=== PATIENT | female | born 1935 | race Caucasian/White ===

== ENCOUNTER 2020-03-19 14:13 | Emergency (ER) | payer MEDICARE ==
--- NOTE | 2020-03-19 14:42 | ER Document Report ---
ED Medical Screen (RME) - General Stated Complaint: POSSIBLE HIGH BLOOD PRESSURE Time Seen by Provider: 03/19/20 14:29 Mode of Arrival: Wheelchair Information source: Patient Notes: 84-year-old female patient presenting to the emergency department with complaints of generalized malaise and severe headache. Her daughter reports that she just moved here from another town, she was recently admitted last week for hyponatremia. Patient is usually very active but she is barely getting out of bed and is complaining of a severe headache. Today they took Tylenol and there was no relief of the headache. She had an elevated blood pressure at home of 188/85 according to her daughter. She is on ramipril, Plavix, Lipitor and mirtazapine. Patient is alert, oriented, appears to not feel well. Lung sounds clear and eq ual bilaterally. I have greeted and performed a rapid initial assessment of this patient. A comprehensive ED assessment and evaluation of the patient, analysis of test results and completion of the medical decision making process will be conducted by additional ED providers. I have specifically instructed the patient or family members with the patient to immediately return to any nursing staff should anything change in the patient's condition or with their chief complaint. Physical Exam - Vital signs Vitals: Temp Pulse Resp BP Pulse Ox 98.6 F 75 16 166/72 H 100 03/19/20 14:15 03/19/20 14:15 03/19/20 14:15 03/19/20 14:15 03/19/20 14:15 Course - Vital Signs Vital signs: Temp Pulse Resp BP Pulse Ox 98.6 F 75 16 166/72 H 100 03/19/20 14:15 03/19/20 14:15 03/19/20 14:15 03/19/20 14:15 03/19/20 14:15
[2020-03-19 15:08] LABS: ABSOLUTE EOSINOPHILS # (AUTO) 0.1 10^3/uL (0.0-0.6); ABSOLUTE LYMPHOCYTES (AUTO) 0.9 10^3/uL (0.5-4.7); ABSOLUTE MONOCYTES (AUTO) 0.3 10^3/uL (0.1-1.4); ABSOLUTE NEUT (AUTO) 2.5 10^3/uL (1.7-8.2); BASOPHILS % (AUTO) 0.7 % (0-2); EOSINOPHILS % (AUTO) 1.8 % (0-6); HEMATOCRIT 37.1 % (36.0-47.0); MEAN CORPUSCULAR HEMOGLOBIN 31.8 pg (27.0-33.4); MEAN CORPUSCULAR VOLUME 91 fl (80-97); MONOCYTES % (AUTO) 7.8 % (3-13); PLATELET COUNT 182 10^3/uL (150-450); RED BLOOD COUNT 4.09 10^6/uL (3.72-5.28); RED CELL DISTRIBUTION WIDTH 12.9 % (11.5-14.0); SEGMENTED NEUTROPHILS % (AUTO) 66.7 % (42-78); TOTAL CELLS COUNTED % (AUTO) 100 %; WHITE BLOOD COUNT 3.7 10^3/uL (4.0-10.5)
--- NOTE | 2020-03-19 15:24 | RADIOLOGY REPORT (SQ) ---
EXAM DESCRIPTION: CHEST 2 VIEWS IMAGES COMPLETED DATE/TIME: 03/19/2020 3:09 pm REASON FOR STUDY: malaise COMPARISON: None. NUMBER OF VIEWS: Two view. TECHNIQUE: Frontal and lateral radiographic views of the chest acquired. LIMITATIONS: None. FINDINGS: LUNGS AND PLEURA: No opacities, masses or pneumothorax. No pleural effusion. Attenuated bl ood vessels and flattened frederick-diaphragms. MEDIASTINUM AND HILAR STRUCTURES: No masses. No contour abnormalities. HEART AND VASCULAR STRUCTURES: Heart normal in size and contour. No evidence for failure. BONES: No acute findings. HARDWARE: None in the chest. OTHER: No other significant finding. IMPRESSION: COPD. NO ACUTE RADIOGRAPHIC FINDING IN THE CHEST. TECHNICAL DOCUMENTATION: JOB ID: [id number] 2010 [employer]- All Rights Reserved Reading location - IP/workstation name: [email or web address]
[2020-03-19 15:28] LABS: ALKALINE PHOSPHATASE 73 U/L (38-126); ANION GAP 6 (5-19); ASPARTATE AMINO TRANSFERASE 34 U/L (14-36); BILIRUBIN,TOTAL 0.5 mg/dL (0.2-1.3); BLOOD UREA NITROGEN 14 mg/dL (7-20); CALCIUM 9.6 mg/dL (8.4-10.2); CARBON DIOXIDE 29 mmol/L (22-30); CHLORIDE 94 mmol/L (98-107); GLUCOSE 97 mg/dL (75-110); POTASSIUM 4.6 mmol/L (3.6-5.0); TOTAL PROTEIN 6.7 g/dL (6.3-8.2)
--- NOTE | 2020-03-19 15:31 | RADIOLOGY REPORT (SQ) ---
EXAM DESCRIPTION: CT HEAD WITHOUT IMAGES COMPLETED DATE/TIME: 03/19/2020 3:22 pm REASON FOR STUDY: headache COMPARISON: None. TECHNIQUE: Axial images acquired through the brain without intravenous contrast. Images reviewed wi th bone, brain and subdural windows. Additional sagittal and coronal reconstructions were generated. Images stored on PACS. All CT scanners at this facility use dose modulation, iterative reconstruction, and/or weight based d osing when appropriate to reduce radiation dose to as low as reasonably achievable (ALARA). [facility]: Dose Right [facility]: CareDose [facility]: Dose Right [facility]: Teradose 4D [facility]: [place] RADIATION DOSE: CT Rad equipment meets quality standard of care and radiation dose reduction techniq ues were employed. CTDIvol: 53.2 mGy. DLP: 964 mGy-cm. mGy. LIMITATIONS: None. FINDINGS: VENTRICLES: Normal size and contour. CEREBRUM: No masses. No hemorrhage. No midline shift. No evidence for acute infarction. Normal gra y/white matter differentiation. No areas of low density in the white matter. CEREBELLUM: No masses. No hemorrhage. No alteration of density. No evidence for acute infarction. EXTRAAXIAL SPACES: No fluid collections. No masses. ORBITS AND GLOBE: No intra- or extraconal masses. Normal contour of globe without masses. CALVARIUM: No fracture. PARANASAL SINUSES: No fluid or mucosal thickening. SOFT TISSUES: No mass or hematoma. OTHER: No other significant finding. IMPRESSION: NORMAL BRAIN CT WITHOUT CONTRAST. EVIDENCE OF ACUTE STROKE: NO. COMMENT: Quality ID # [id number]: Final reports with documentation of one or more dose reduction techniques (e.g., Automated exposure control, adjustment of the mA and/or kV according to patient size, use of iterative reconstruction technique) TECHNICAL DOCUMENTATION: JOB ID: [id number] 2010 [employer]- All Rights Reserved Reading location - IP/workstation name: [email or web address]
[2020-03-19] MEDS ORDERED: NORMAL SALINE 500 ML IV ONE (17:58)
--- NOTE | 2020-03-19 17:59 | ER Document Report ---
ED General - General Chief Complaint: Headache Stated Complaint: POSSIBLE HIGH BLOOD PRESSURE Time Seen by Provider: 03/19/20 14:29 Mode of Arrival: Wheelchair Information source: Patient Notes: 84-year-old woman is brought to the emergency department with a complaint of not feeling well. She apparently has been recently started on lisinopril 2.5 mg daily for elevated blood pressure. She was also noted to have a low sodium of 127 her primary care doctor in [facility]. She has come to [place] to stay with her daughter and will be seeing him to follow-up with primary care here. They are concerned that her pressure is still running high in the 150-160 systolic range. She denies dizziness or syncope. - Related Data Allergies/Adverse Reactions: Penicillins Allergy (Verified 03/19/20 17:28) Past Medical History - General Information source: Patient - Social History Smoking Status: Never Smoker Frequency of alcohol use: None Drug Abuse: None Family History: Reviewed & Not Pertinent Review of Systems - Review of Systems Notes: Constitutional: + Anxiety . HENT: Negative for sore throat. Eyes: Negative for visual changes. Cardiovascular: Negative for chest pain. Respiratory: Negative for shortness of breath. Gastrointestinal: Negative for abdominal pain, vomiting or diarrhea. Genitourinary: Negative for dysuria. Musculoskeletal: Negative for back pain. Skin: Negative for rash. Neurological: + headaches, +weakness 10 point ROS negative except as marked above and in HPI. Physical Exam - Vital signs Vitals: Temp Pulse Resp BP Pulse Ox 98.6 F 75 16 166/72 H 100 03/19/20 14:15 03/19/20 14:15 03/19/20 14:15 03/19/20 14:15 03/19/20 14:15 - Notes Notes: PHYSICAL EXAMINATION: Physical Exam: General: Thin frail 84-year-old woman no acute distress HEENT: NC/AT, pupils equal round and reactive to light, MM moist,nares clear, o ropharynx clear, airway patent Neck: supple, no adenopathy, no masses. Good range of motion Lungs: clear, no wheezing, no rales no rhonchi CVS: Regular rate and rhythm no murmur gallop or rub Abdomen: Soft, active, nontender, no masses, no hepatosplenomegaly Ext: No edema, clubbing or cyanosis. Neuro: Alert and responsive, moving all 4 extremities on command, cranial nerves intact, no focal findings Skin: Intact no open lesions, no rash Course - Re-evaluation Re-evalutation: 03/19/20 19:17 Patient was noted to have a sodium of 128.7, urine sodium of 92, I discussed this finding with the patient and her daughter and stated that she could liberalize her sodium. Increase lisinopril to 5 mg daily and to monitor the blood pressure closely at home. They are encouraged to follow-up with her primary care doctor early next week for a recheck of the sodium level. Patient and daughter are in agreement with this plan. - Vital Signs Vital signs: Temp Pulse Resp BP Pulse Ox 98.6 F 75 17 169/70 H 100 03/19/20 14:15 03/19/20 14:15 03/19/20 19:29 03/19/20 19:29 03/19/20 19:29 - Laboratory Result Diagrams: 03/19/20 14:57 03/19/20 14:57 Laboratory results interpreted by me: 03/19/20 03/19/20 03/19/20 14:57 14:57 18:00 WBC 3.7 L Sodium 128.8 L Chloride 94 L Urine Ketones TRACE H Urine Blood SMALL H Urine Sodium 03/19/20 18:00 WBC Sodium Chloride Urine Ketones Urine Blood Urine Sodium 92 H 03/19/20 19:23 I have reviewed laboratory data and used this information for the treatment decisions regarding the patient. - Diagnostic Test Radiology reviewed: Pending, Image reviewed, Reports reviewed Radiology results interpreted by me: 03/19/20 19:23 Chest x-ray: COPD, no acute cardiopulmonary findings. CT head noncontrast: No acute intracerebral findings, no CVA. - EKG Interpretation by Me EKG shows normal: Sinus rhythm, [place] - Normal, Intervals - Normal, QRS Complexes - Normal, ST-T Waves - No acute ST or T wave abnormalities, no ischemic changes. Rate: Normal - 70 Discharge - Discharge Clinical Impression: Hyponatremia Hypertension Qualifiers: Hypertension type: unspecified Qualified Code(s): I10 - Essential (primary) hypertension Condition: Good Disposition: HOME, SELF-CARE Instructions: High Blood Pressure, Requiring Treatment ([facility]), Hyponatremia ([facility]) Additional Instructions: Your seen in the emergency department today with a sodium of 128.7 and slightly elevated blood pressures in the 150-160 systolic level. Please liberalized her sodium intake salty chips or soups or additional sodium to your food. Increase the lisinopril to 5 mg a day and monitor the blood pressure closely at home. Please follow-up for a recheck of your sodium early next week with your primary care doctor or urgent care. If your symptoms are worsening or you have other concerns you may return to the emergency department. HOME CARE INSTRUCTIONS & INFORMATION: Thank you for choosing us for your medical needs. We hope you're satisfied with the care you received. After you leave, you must properly care for your problem and, at the same time, observe its progress. Any condition can change. Some illnesses can change rapidly over hours or days. If your condition worsens, return to the Emergency Department or see your physician promptly. ABOUT YOUR X-RAYS AND EKG'S: If you had an EKG or X-rays taken, they have been read by the Emergency Physician. The X-rays and EKG's will also be read by a Radiologist or Hearing Healthcare Practitioner within 24 hours. If discrepancies are noted, you will be notified by telephone. Please be certain the ED has a correct telephone number & address where you can be reached. Also, realize that some fractures or abnormalities do not show up on initial X-rays. If your symptoms continue, see your physician. ABOUT YOUR LABORATORY TEST: If you had laboratory tests, the results have been reviewed by the Emergency Physician. Some test results (for example cultures) may not be available for several days. You will be contacted if any test result shows you need additional treatment. Please be certain the ED has a correct telephone number and address where you can be reached. ABOUT YOUR MEDICATIONS: You will receive instructions on how to take your medicine on the prescription label you receive. Additional information may be provided by the Pharmacy. If you have questions afterwards, call the ED for clarification or further instructions. Some prescribed medications may cause drowsiness. Do not perform tasks such as driving a car or operating machinery without consulting your Pharmacist. If you feel you need a refill of pain medication, your condition will need re-evaluation. Please do not call for a refill of any medication. ABOUT YOUR SIGNATURE: Signature of this document acknowledges to followin. Understanding that you received emergency treatment and that you may be released before al medical problems are known or treated. Please be certain the ED has a correct phone number & address where you can be reached. 2. Acknowledgement that you will arrange for follow-up care as recommended. 3. Authorization for the Emergency Physician to provide information to your follow-up Physician in order to maximize your care. AT ANY TIME, IF YOUR SYMPTOMS CHANGE SIGNIFICANTLY OR WORSEN OR YOU DEVELOP NEW SYMPTOMS, RETURN TO THE EMERGENCY DEPARTMENT IMMEDIATELY FOR RE-EVALUATION. OUR GOAL IS TO PROVIDE EXCELLENT MEDICAL CARE! WE HOPE THAT WE HAVE MET YOUR EXPECTATIONS DURING YOUR EMERGENCY DEPARTMENT VISIT AND THAT YOU FEEL YOU HAVE RECEIVED EXCELLENT CARE!
[2020-03-19 18:20] LABS: APPEARANCE,URINE CLEAR; BILIRUBIN,URINE NEGATIVE (NEGATIVE); COLOR,URINE STRAW; GLUCOSE, URINE NEGATIVE (NEGATIVE); KETONES,URINE TRACE mg/dL (NEGATIVE); LEUKOCYTE ESTERASE,URINE NEGATIVE (NEGATIVE); NITRITE,URINE NEGATIVE (NEGATIVE); PROTEIN,URINE NEGATIVE (NEGATIVE); URINE SPECIFIC GRAVITY 1.008; UROBILINOGEN,URINE NEGATIVE mg/dL (<2.0)
[2020-03-19 19:40] VITALS: BP 169/70
--- NOTE | 2020-03-20 08:43 | EKG REPORT ---
SEVERITY:- NORMAL ECG - SINUS RHYTHM : Confirmed by: Johnnie Almaguer MD 20-Mar-2020 08:41:44
== END 2020-03-19 19:35 | disposition home or self-care (01) ==
LOC: ER 14:13
DX: I10 Essential (primary) hypertension (principal); E87.1 Hypo-osmolality and hyponatremia; R51 Headache; Z88.0 Allergy status to penicillin
CPT/HCPCS: 93005; 99284; 36415; 87040; 87086; 83735; 84300; 85025; 87077; 80053; 81001; 84484; 87150 ×26; 71046; 70450; 93010; J7040; 87186

== ENCOUNTER 2020-04-06 07:23 | Emergency (ER) | payer MEDICARE ==
[2020-04-06] MEDS ORDERED: RAMIPRIL 2.5 MG CAPSULE PO ONE (08:12)
--- NOTE | 2020-04-06 08:16 | ER Document Report ---
ED General - General Chief Complaint: Urinary Frequency Stated Complaint: HIGH BLOOD PRESSURE Time Seen by Provider: 04/06/20 07:49 - HPI Notes: Patient is an 84-year-old female, accompanied by her daughter, who presents to the emergency department for evaluation. She complains of "pelvic spasms" and the sensation that she has to urinate frequently. She states this been happening at night over the last several days, became worse last night. She denies any fevers or chills. No nausea or vomiting. She is eating and drinking normally. No chest pain or dyspnea. Normal bowel movements. Patient's daughter states that she has been checking her blood pressure regularly. She had been on ramipril, recently doubled secondary to high blood pressure. According to the daughter, some blood pressures were very low, with a pressure of 110/40 not infrequently. Because of this the patient's daughter took her off of all blood pressure medications. They checked her blood pressure today, off of medication, while having spasms, and it was markedly high, so they sent her to the emergency department for further evaluation. Patient denies any other associated symptoms. - Related Data Allergies/Adverse Reactions: Penicillins Allergy (Verified 04/06/20 07:32) Home Medications: 7.5 mirtazipine, atorvastatin, plavix, asa 81 Past Medical History - General Information source: Patient, Relative - Social History Smoking Status: Never Smoker Chew tobacco use (# tins/day): No Frequency of alcohol use: None Drug Abuse: None Family History: Reviewed & Not Pertinent - Past Medical History Cardiac Medical History: Reports: Hx Hypertension Psychiatric Medical History: Reports: Hx Depression Physical Exam - Vital signs Vitals: Temp Pulse Resp BP Pulse Ox 98.6 F 73 19 190/87 H 97 04/06/20 07:31 04/06/20 07:31 04/06/20 07:31 04/06/20 07:31 04/06/20 07:31 - Notes Notes: Vital signs reviewed, please refer to chart. Head is normocephalic, atraumatic. Pupils equal round, reactive to light. Neck is supple without meningismus. Heart is regular rate and rhythm. Lungs are clear to auscultation bilaterally. Abdomen is soft, nontender, normoactive bowel sounds throughout. 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 No surrounding erythema. Extremities without cyanosis, clubbing. Posterior calves are nontender. Peripheral pulses are equal. Skin is warm and dry. Patient is awake, alert, moves all 4 extremity spontaneously. No gross facial asymmetry. Course - Re-evaluation Re-evalutation: 04/06/20 08:17 Patient presents to the emergency department for evaluation of elevated blood pressure as well as urinary frequency. The patient is off of her regular blood pressure medications. This is likely the etiology of her symptoms, compounded with the fact that she is having discomfort from urinary frequency and dysuria. Awaiting urinalysis, patient has been as of yet unable to provide a urine sample. Patient is given water. Her blood pressure is elevated, but again she has multiple reasons for this. She has no signs of endorgan damage. Patient is given lisinopril orally here. The daughter is instructed to put the patient back on lisinopril 2.5 mg daily and keep a close eye on blood pressure. They are amenable to this plan. Again, awaiting urinalysis, we will continue to monitor. 04/06/20 09:47 Patient's laboratory investigations revealed blood in her urine. Given this with the symptoms she is having, I am inclined to treat her as an acute cystitis. Urine sent for culture. We will send her home with antibiotics. We will also send with a prescription for Pyridium, first dose given here. Otherwise they are told to have urine rechecked in follow-up. Reminded they need to restart the ramipril 2.5 mg daily, keep an eye on her blood pressure. They are to return to the ED with worsening or new concerning symptoms of any sort. - Vital Signs Vital signs: Temp Pulse Resp BP Pulse Ox 98.6 F 73 19 190/87 H 97 04/06/20 07:33 04/06/20 07:31 04/06/20 07:31 04/06/20 07:31 04/06/20 07:31 - Laboratory Laboratory results interpreted by me: 04/06/20 08:35 Urine Blood SMALL H Discharge - Discharge Clinical Impression: Acute cystitis Qualifiers: Hematuria presence: with hematuria Qualified Code(s): N30.01 - Acute cystitis with hematuria Hypertension Qualifiers: Hypertension type: unspecified Qualified Code(s): I10 - Essential (primary) hy pertension Condition: Stable Disposition: HOME, SELF-CARE Instructions: Urinary Tract Infection ([facility]), High Blood Pressure, Requiring Treatment ([facility]) Additional Instructions: Please restart the ramipril, 2.5 mg daily. Take all the antibiotic as prescribed until it is gone. Use the Pyridium as needed for urinary pain. Please note this will cause a discoloration of your urine and other bodily fluids. Have your urine rechecked. Please do not take the Pyridium for 24 hours prior to having this performed. If you develop fevers, vomiting, or any other new or concerning symptoms, please return immediately to the emergency department for reevaluation.
[2020-04-06 08:51] LABS: APPEARANCE,URINE CLEAR; BILIRUBIN,URINE NEGATIVE (NEGATIVE); COLOR,URINE STRAW; GLUCOSE, URINE NEGATIVE (NEGATIVE); KETONES,URINE NEGATIVE (NEGATIVE); LEUKOCYTE ESTERASE,URINE NEGATIVE (NEGATIVE); NITRITE,URINE NEGATIVE (NEGATIVE); PROTEIN,URINE NEGATIVE (NEGATIVE); UROBILINOGEN,URINE NEGATIVE mg/dL (<2.0)
[2020-04-06] MEDS ORDERED: PHENAZOPYRIDINE HCL 100 MG TABLET PO ONE (09:44)
[2020-04-06 10:09] VITALS: BP 160/92
== END 2020-04-06 10:12 | disposition home or self-care (01) ==
LOC: ER 07:23
DX: I10 Essential (primary) hypertension (principal); N30.01 Acute cystitis with hematuria; F32.9 Major depressive disorder, single episode, unspecified; Z79.899 Other long term (current) drug therapy; Z79.02 Long term (current) use of antithrombotics/antiplatelets; Z79.82 Long term (current) use of aspirin
CPT/HCPCS: 99283; 87086; 81001; A9270 ×2; J3490

== ENCOUNTER 2020-04-20 09:54 | Observation (INO) | payer MEDICARE ==
[2020-04-20 10:29] LABS: ABSOLUTE LYMPHOCYTES (AUTO) 0.6 10^3/uL (0.5-4.7); ABSOLUTE MONOCYTES (AUTO) 0.3 10^3/uL (0.1-1.4); ABSOLUTE NEUT (AUTO) 3.5 10^3/uL (1.7-8.2); BASOPHILS % (AUTO) 0.5 % (0-2); EOSINOPHILS % (AUTO) 0.6 % (0-6); HEMOGLOBIN 12.7 g/dL (12.0-15.5); LYMPHOCYTES % (AUTO) 13.2 % (13-45); MEAN CORPUSCULAR HEMOGLOBIN 30.4 pg (27.0-33.4); MEAN CORPUSCULAR HGB CONC 33.4 g/dL (32.0-36.0); MEAN CORPUSCULAR VOLUME 91 fl (80-97); MONOCYTES % (AUTO) 7.3 % (3-13); PLATELET COUNT 189 10^3/uL (150-450); RED BLOOD COUNT 4.17 10^6/uL (3.72-5.28); RED CELL DISTRIBUTION WIDTH 12.8 % (11.5-14.0); SEGMENTED NEUTROPHILS % (AUTO) 78.4 % (42-78); TOTAL CELLS COUNTED % (AUTO) 100 %; WHITE BLOOD COUNT 4.5 10^3/uL (4.0-10.5)
--- NOTE | 2020-04-20 10:44 | ER Document Report ---
Entered by JOSE MARTINEZ SCRIBE 04/20/20 1015 Acting as scribe for:JASPAL KAPADIA MD ED General - General Stated Complaint: WEAKNESS,HEADACHE,URUNARY ISSUES Time Seen by Provider: 04/20/20 09:56 Information source: Patient Notes: This 84 year old female patient presents to the emergency department today for complaints of "UTI symptoms". Patient is unable to describe these symptoms. Daughter states she is just finishing Keflex for a UTI. Daughter mentions that she thinks the patient is hyponatremic as "this is how she acted in the past" but she is unable to describe how the patient acted to indicate that she might be hyponatremic. Patient recently had 2 antidepressants stopped as well as Plavix that was initially started for TIA. Patient had her venlafaxine stopped 3 weeks ago, the mirtazapine stopped 3 days, and the Plavix was stopped about 4 days ago. She had been on Plavix for TIA in the past. The daughter also reports that she got her medicines mixed up and took her ramipril 2.5 mg yesterday morning instead of yesterday evening. She was seen here on 03/19/2020 for high blood pressure and had an EKG done at that time which was normal. She returned on 04/06/2020 with high blood pressure, and was diagnosed urinary tract infection and put on Pyridium and Macrodantin. Urine culture was less than 6000 colonies. TRAVEL OUTSIDE OF THE [place] IN LAST 30 DAYS: No - Related Data Allergies/Adverse Reactions: Penicillins Allergy (Verified 04/06/20 07:32) Past Medical History - General Information source: Patient - Social History Smoking Status: Never Smoker Cigarette use (# per day): No Frequency of alcohol use: None Drug Abuse: None Lives with: Family Family History: Reviewed & Not Pertinent - Past Medical History Cardiac Medical History: Reports: Hx Hypertension Psychiatric Medical History: Reports: Hx Depression Surgical Hx: Negative Review of Systems - Review of Systems Constitutional: See HPI, Other - "UTI symptoms" EENT: No symptoms reported Cardiovascular: See HPI, Other - elevated blood pressure Respiratory: No symptoms reported Gastrointestinal: No symptoms reported Genitourinary: No symptoms reported Female Genitourinary: No symptoms reported Musculoskeletal: No symptoms reported Skin: No symptoms reported Hematologic/Lymphatic: No symptoms reported Neurological/Psychological: No symptoms reported -: Yes All other systems reviewed and negative Physical Exam - Vital signs Vitals: Temp Pulse Resp BP Pulse Ox 98.1 F 73 20 182/68 H 100 04/20/20 09:59 04/20/20 09:59 04/20/20 09:59 04/20/20 09:59 04/20/20 09:59 - Notes Notes: Physical Exam: General: Alert, very thing appearing, no subcutaneous fat. HEENT: Normocephalic. Atraumatic. PERRL. Extraocular movements intact. Oropharynx clear. Neck: Supple. Non-tender. No carotid bruits. Respiratory: No respiratory distress. Clear and equal breath sounds bilaterally. Cardiovascular: Regular rate and rhythm. Abdominal: Normal Inspection. Non-tender. No distension. Normal Bowel Sounds. Back: No gross abnormalities. Extremities: Moves all four extremities. Upper extremities: Normal inspection. Normal ROM. Lower extremities: Normal inspection. No edema. Normal ROM. Neurological: Normal cognition. AAOx4. Normal speech. Psychological: Normal affect. Normal Mood. Skin: Warm. Dry. Normal color. Course - Re-evaluation Re-evalutation: 04/20/20 10:50 EKG shows anterolateral ischemic changes which are new compared to the only previous EKG we have to look at that was normal. She was given 1 sublingual nitroglycerin at 1045. The nurse was instructed to give a 500 mL bolus of normal saline. 04/20/20 11:53 A repeat EKG after the nitroglycerin had lowered her blood pressure to about 155 systolic, is unchanged from the first showing the T wave inversions in the anterolateral leads compared to the normal EKG on 03/19/2020. - Vital Signs Vital signs: Temp Pulse Resp BP Pulse Ox 98.1 F 73 16 159/68 H 99 04/20/20 09:59 04/20/20 09:59 04/20/20 14:01 04/20/20 14:00 04/20/20 14:01 - Laboratory Result Diagrams: 04/20/20 10:17 04/20/20 10:17 Laboratory results interpreted by me: 04/20/20 04/20/20 04/20/20 10:17 10:17 10:17 Seg Neutrophils % 78.4 H Sodium 132.2 L Chloride 97 L TSH 0.42 L Urine Blood 04/20/20 10:33 Seg Neutrophils % Sodium Chloride TSH Urine Blood MODERATE H - EKG Interpretation by Me EKG shows normal: Sinus rhythm, [place], QRS Complexes. abnormal: Intervals - Prolonged QT interval, ST-T Waves - Anterolateral ischemic T wave changes Rate: Normal - 68 Rhythm: NSR [place]/QRS: LAHB/LAFB P Waves: LAE When compared to previous EKG there are: Changes noted - Consults Dr. Almaguer Time consulted: 11:37 Consulted provider: will come to ER Dr. Haynes Time consulted: 11:45 Consulted provider: will come to ER Critical Care Note - Critical Care Note Total time excluding time spent on procedures (mins): 30 Comments: At least 30 minutes spent evaluating the patient getting a history from the patient and from the daughter. Reviewing any available records. Treating the patient's elevated blood pressure in the face of an EKG showing ischemic changes. Reevaluating the patient after giving nitrates and lowering the blood pressure. Discussions with the hospitalist service and the barrel handler pedodontist to arrange a disposition and admission for the patient. Discharge - Discharge Clinical Impression: Subendocardial ischemia High blood pressure Qualifiers: Hypertension type: essential hypertension Qualified Code(s): I10 - Essential (primary) hypertension Condition: Good Disposition: ADMITTED INPATIENT Admitting Provider: [place] (Hospitalist) Unit Admitted: I[facility]U I personally performed the services described in the documentation, reviewed and edited the documentation which was dictated to the scribe in my presence, and it accurately records my words and actions.
[2020-04-20] MEDS ORDERED: NORMAL SALINE 1000 ML 500 ML IV ONE (10:45)
[2020-04-20 10:47] LABS: ALKALINE PHOSPHATASE 77 U/L (38-126); ANION GAP 6 (5-19); ASPARTATE AMINO TRANSFERASE 30 U/L (14-36); BILIRUBIN,TOTAL 0.4 mg/dL (0.2-1.3); BLOOD UREA NITROGEN 11 mg/dL (7-20); CALCIUM 9.3 mg/dL (8.4-10.2); CARBON DIOXIDE 29 mmol/L (22-30); CHLORIDE 97 mmol/L (98-107); GLUCOSE 104 mg/dL (75-110); POTASSIUM 3.8 mmol/L (3.6-5.0); TOTAL PROTEIN 6.5 g/dL (6.3-8.2)
[2020-04-20 10:59] LABS: CREATINE KINASE MB 2.64 ng/mL (<4.55); TROPONIN I 0.016 ng/mL
[2020-04-20 11:11] LABS: APPEARANCE,URINE CLEAR; BILIRUBIN,URINE NEGATIVE (NEGATIVE); COLOR,URINE STRAW; GLUCOSE, URINE NEGATIVE (NEGATIVE); KETONES,URINE NEGATIVE (NEGATIVE); LEUKOCYTE ESTERASE,URINE NEGATIVE (NEGATIVE); NITRITE,URINE NEGATIVE (NEGATIVE); PROTEIN,URINE NEGATIVE (NEGATIVE); URINE SPECIFIC GRAVITY 1.006; UROBILINOGEN,URINE NEGATIVE mg/dL (<2.0)
--- NOTE | 2020-04-20 13:03 | PDOC CONSULTATION ---
Consultation Consult Date: 04/20/20 Provider Consulted: MATEO SHEN Consult reason:: Abnormal EKG History of Present Illness Admission Date/PCP: 04/20/20 12:00 NO LOCALMD Patient complains of: Dysuria History of Present Illness: JAYME GALLEGOS is a 84 year old female With the following active problems 1. Colon cancer-in remission 7 years ago 2. Colostomy 3. Urinary tract infection 4. TIA 5. Systemic hypertension 84-year-old lady who has been brought back to the hospital with persistent complaints of dysuria. Recent at least 2 episodes of UTI were treated with vari ous antibiotics. Patient also reports having had several medication changes in the past few weeks for hypertension as well as depression with her provider in [facility]. Details and medication list are not available to me. At the time of this admission EKG was markedly abnormal compared to prior with significant T inversions in multiple leads. Patient is completely asymptomatic and does not report chest pain or dyspnea or palpitations. There is no report of syncope or presyncope or dizziness. Unclear as to what medications have been changed recently. Daughter reports having had multiple medications stopped this past Saturday. Review of systems is negative as per pertinent positives mentioned in the HPI and under review of systems. No familial illnesses reported. Past Medical History Cardiac Medical History: Reports: Hypertension Psychiatric Medical History: Reports: Depression Social History Lives with: Family Smoking Status: Never Smoker Family History Family History: Reviewed & Not Pertinent Parental Family History Reviewed: Yes - No familial illnesses reported Children Family History Reviewed: NA Sibling(s) Family History Reviewed.: NA Medication/Allergy Home Medications: Nitrofurantoin Monohyd/M-Cryst [Macrobid 100 mg Capsule] 100 mg PO BID #14 cap 04/06/20 Phenazopyridine HCl [Pyridium 100 Mg Tablet] 100 mg PO TIDP PRN #6 tablet 04/06/20 Allergies/Adverse Reactions: Penicillins Allergy (Verified 04/06/20 07:32) Review of Systems All systems: reviewed and no additional remarkable complaints except as stated Constitutional: PRESENT: as per HPI Eyes: ABSENT: visual disturbances Nose, Mouth, and Throat: ABSENT: as per HPI, headache(s), mouth pain, sore throat, vertigo, other Cardiovascular: ABSENT: chest pain, dyspnea on exertion, edema, orthropnea, palpitations Respiratory: ABSENT: cough, hemoptysis Gastrointestinal: PRESENT: as per HPI. ABSENT: abdominal pain, bloating, coffee ground emesis, constipation, diarrhea, dysphagia, heartburn, hematemesis, hematochezia, melena, nausea, vomiting, other Genitourinary: PRESENT: dysuria Neurological: ABSENT: abnormal gait, abnormal speech, confusion, dizziness, focal weakness, syncope Psychiatric: ABSENT: anxiety, depression, homidical ideation, suicidal ideation Physical Exam Vital Signs: Temp Pulse Resp BP Pulse Ox 98.1 F 73 20 158/64 H 98 04/20/20 09:59 04/20/20 09:59 04/20/20 11:30 04/20/20 11:30 04/20/20 11:30 Intake & Output 04/19/20 04/20/20 04/21/20 06:59 06:59 06:59 Intake Total 500 Balance 500 Weight 53.5 kg General appearance: PRESENT: no acute distress, cooperative, thin Head exam: PRESENT: atraumatic, normocephalic Eye exam: PRESENT: conjunctiva pink, EOMI Mouth exam: PRESENT: moist Respiratory exam: PRESENT: clear to auscultation kyle, symmetrical, unlabored Cardiovascular exam: PRESENT: RRR, +S1, +S2 Pulses: PRESENT: normal radial pulses GI/Abdominal exam: PRESENT: soft, other - Colostomy noted Rectal exam: PRESENT: deferred Musculoskeletal exam: PRESENT: normal inspection Neurological exam: PRESENT: alert, awake, oriented to person, oriented to place, oriented to time, oriented to situation Psychiatric exam: PRESENT: appropriate affect Skin exam: PRESENT: dry, intact Results Laboratory Results: 04/20/20 10:17 04/20/20 10:17 04/20/20 04/20/20 04/20/20 10:17 10:17 10:17 WBC 4.5 RBC 4.17 Hgb 12.7 Hct 38.0 MCV 91 MCH 30.4 MCHC 33.4 RDW 12.8 Plt Count 189 Seg Neutrophils % 78.4 H Sodium 132.2 L Potassium 3.8 Chloride 97 L Carbon Dioxide 29 Anion Gap 6 BUN 11 Creatinine 0.76 Est GFR ( Amer) > 60 Glucose 104 Calcium 9.3 Magnesium 1.8 Total Bilirubin 0.4 AST 30 Alkaline Phosphatase 77 Total Protein 6.5 Albumin 4.0 TSH 0.42 L Urine Color Urine Appearance Urine pH Ur Specific [place] Urine Protein Urine Glucose (UA) Urine Ketones Urine Blood Urine Nitrite Ur Leukocyte Esterase Urine WBC (Auto) Urine RBC (Auto) 04/20/20 10:33 WBC RBC Hgb Hct MCV MCH MCHC RDW Plt Count Seg Neutrophils % Sodium Potassium Chloride Carbon Dioxide Anion Gap BUN Creatinine Est GFR ( Amer) Glucose Calcium Magnesium Total Bilirubin AST Alkaline Phosphatase Total Protein Albumin TSH Urine Color STRAW Urine Appearance CLEAR Urine pH 7.0 Ur Specific [place] 1.006 Urine Protein NEGATIVE Urine Glucose (UA) NEGATIVE Urine Ketones NEGATIVE Urine Blood MODERATE H Urine Nitrite NEGATIVE Ur Leukocyte Esterase NEGATIVE Urine WBC (Auto) 0 Urine RBC (Auto) 4 04/20/20 10:17 CK-MB (CK-2) 2.64 Troponin I 0.016 EKG Comments: 12 twelve-lead EKG 04/20/2020 07/28/2007. Independently reviewed by me Sinus rhythm, partial right bundle branch block, multiple leads showing T inversions with prolonged QTC 524 Twelve-lead EKG 04/20/2020 1040. Independently reviewed by me Sinus rhythm, left atrial abnormality left anterior fascicular block, QTC is 511 ms with multiple leads showing T inversions. Twelve-lead EKG 03/19/2020. Independently reviewed by me Sinus rhythm, 70 bpm, QTC is 450 ms Cardiac troponin less than 0.012, 0.[address] 03/19/[address] without contrast Chest x-ray 03/19/2020 No acute radiographic finding in the chest Assessment & Plan - Diagnosis (1) High blood pressure Qualifiers: Hypertension type: essential hypertension Qualified Code(s): I10 - Essential (primary) hypertension Is this a current diagnosis for this admission?: Yes Plan: Daughter is not sure of her home regimen. I would suspect that it is reasonable to start her back on her home regimen of antihypertensive medications No added salt in the diet (2) Prolonged Q-T interval on ECG Is this a current diagnosis for this admission?: Yes Plan: Review of EKG show that there has been an increase in QT interval compared to prior EKGs. There are multiple leads showing T inversions and market prolongation of QT. I suspect that these changes are due to polypharmacy and perhaps diminished clearance of agents including those used as antidepressants among other medications daughter is unable to provide weight with the medication list Would hold off on any medications including as needed medications that can p otentially impact the QT interval Would repeat EKG tomorrow morning to confirm that the QT interval is normalizing Have to take care to avoid QT prolonging medications. Potassium to be maintained between 4 to 5 mEq/ liter Magnesium to be maintained above 2 mg/dL (3) UTI (urinary tract infection) Is this a current diagnosis for this admission?: Yes Plan: Recurrent urinary tract infection. Management with antibiotics per primary team.
[2020-04-20] MEDS ORDERED: HYDRALAZINE HCL INJ/PF 20 MG/1 ML SDV IV PRN (13:55)
[2020-04-20 14:45] LABS: FREE T3 3.14 pg/mL (2.77-5.27); FREE T4 (FREE THYROXINE) 1.35 ng/dL (0.78-2.19)
--- NOTE | 2020-04-20 14:50 | PDOC H&P ---
History of Present Illness Admission Date/PCP: 04/20/20 12:00 Patient complains of: Hypertension with abnormal EKG History of Present Illness: JAYME GALLEGOS is a 84 year old female with a past medical history of hyponatremia and probable TIA in December. She has hypertension, hyperlipidemia, possible anxiety and a recent urinary tract infection. She also has urinary frequency. She states that she had a very restless night. She woke up 4-5 times to urinate. This morning she did not feel well and her daughter checked her blood pressure and it was 188/88. The patient did have a headache and possible palpitations. She had no diaphoresis, nausea or vomiting. She has recently been weaned off of multiple medications for anxiety and depression including clonazepam, venlafaxine and mirtazapine. It was also hoped that her appetite would improve with the mirtazapine. Once the blood pressure was realized the patient's daughter brought her to the emergency department. Evaluation in the emergency department still revealed hypertension. She was given 10 mg of IV hydralazine and her blood pressure improved. She did have new flipped T waves from a fairly recent EKG. She will be seen by cardiology. We will be admitting her to the hospitalist service to treat her elevated blood pressure, run serial troponins and monitor her EKG. Past Medical History Cardiac Medical History: Reports: Hypertension Pulmonary Medical History: Denies: Asthma, Chronic Obstructive Pulmonary Disease (COPD), Respiratory Failure EENT Medical History: Reports: Ears - Hearing loss Neurological Medical History: Reports: Other - Possible TIA in December Endocrine Medical History: Denies: Hypothyroidism Renal/ Medical History: Denies: Chronic Kidney Disease, End Stage Renal Disease Malignancy Medical History: Reports: Colorectal Cancer GI Medical History: Reports: Gastroesophageal Reflux Disease Denies: Hepatitis Musculoskeltal Medical History: Denies: Arthritis, Fibromyalgia Skin Medical History: Denies: Eczema, Psoriasis Psychiatric Medical History: Reports: Depression Denies: Alcohol Dependency, Substance Abuse, Tobacco Dependency Traumatic Medical History: Reports: None Hematology: Reports: Anemia Past Surgical History Past Surgical History: Reports: Colostomy - Is received 4 L of months symptoms no current, Other - Partial colectomy Social History Information Source: Patient, Relative - The patient's daughter Lives with: Family Smoking Status: Never Smoker Electronic Cigarette use?: No Frequency of Alcohol Use: None Hx Recreational Drug Use: No Hx Prescription Drug Abuse: No - Advance Directive Resuscitation Status: Do Not Resuscitate Surrogate healthcare decision maker:: Patient's daughter is the surrogate decision-maker Family History Family History: CAD, Hypertension, Other - Alcoholism Parental Family History Reviewed: Yes Children Family History Reviewed: NA Sibling(s) Family History Reviewed.: Yes Medication/Allergy Home Medications: Aspirin [Adult Low Dose Aspirin EC] 81 mg PO DAILY 04/20/20 Atorvastatin Calcium [Lipitor 80 mg Tablet] 80 mg PO QPM 04/20/20 Cyanocobalamin (Vitamin B-12) [Vitamin B-12 Inj 1000 Mcg/1 ml Vial] 1,000 mcg INJ .QMONTHLY 04/20/20 Ramipril [Altace 2.5 mg Capsule] 2.5 mg PO QHS 04/20/20 Allergies/Adverse Reactions: Penicillins Allergy (Verified 04/06/20 07:32) Review of Systems All systems: reviewed and no additional remarkable complaints except as stated Constitutional: PRESENT: headache(s) Nose, Mouth, and Throat: PRESENT: headache(s), mouth pain - Mandible incisor has been sore Cardiovascular: ABSENT: chest pain, edema, palpitations Respiratory: ABSENT: cough, dyspnea Gastrointestinal: PRESENT: diarrhea, heartburn. ABSENT: abdominal pain, bloating, nausea, vomiting Genitourinary: PRESENT: nocturia, other - Urinary frequency with recent urinary infection Integumentary: ABSENT: diaphoresis, lesions, rash, wounds Neurological: PRESENT: memory loss - Mild. ABSENT: abnormal gait, abnormal speech, confusion Psychiatric: PRESENT: anxiety - Does admit to mild anxiety, depression - Flat affect. ABSENT: hallucinations, suicidal ideation Endocrine: ABSENT: cold intolerance, heat intolerance Hematologic/Lymphatic: ABSENT: easy bleeding, easy bruising Allergic/Immunologic: ABSENT: seasonal rhinorrhea Physical Exam Vital Signs: Temp Pulse Resp BP Pulse Ox 98.1 F 73 16 159/68 H 99 04/20/20 09:59 04/20/20 09:59 04/20/20 14:01 04/20/20 14:00 04/20/20 14:01 Intake & Output 04/19/20 04/20/20 04/21/20 06:59 06:59 06:59 Intake Total 500 Balance 500 Weight 53.5 kg General appearance: PRESENT: no acute distress, cooperative, thin, well- developed Head exam: PRESENT: atraumatic, normocephalic Eye exam: PRESENT: conjunctiva pink, scleral icterus Ear exam: PRESENT: normal external ear exam. ABSENT: bleeding, drainage Mouth exam: PRESENT: moist Teeth exam: PRESENT: poor dentation Neck exam: PRESENT: carotid bruit - Left side. ABSENT: JVD, lymphadenopathy, tenderness, thyromegaly, tracheostomy Respiratory exam: PRESENT: clear to auscultation kyle, symmetrical, unlabored. ABSENT: accessory muscle use, crackles, rales, rhonchi, tachypnea, wheezes Cardiovascular exam: PRESENT: RRR, +S1, +S2, systolic murmur - 2/6. ABSENT: bradycardia, diastolic murmur, irregular rhythm, tachycardia Pulses: PRESENT: normal radial pulses, +1 pedal pulses bilateral GI/Abdominal exam: PRESENT: normal bowel sounds, soft, other - Colostomy present and functioning. ABSENT: distended, tenderness Rectal exam: PRESENT: deferred Gentrourinary exam: ABSENT: indwelling catheter Extremities exam: ABSENT: calf tenderness, pedal edema Musculoskeletal exam: PRESENT: ambulatory, normal inspection, other - Arthritic changes both thumbs. ABSENT: deformity, dislocation Neurological exam: PRESENT: alert, awake, oriented to person, oriented to place, oriented to situation, CN II-XII grossly intact. ABSENT: altered Psychiatric exam: PRESENT: anxious - Mild, appropriate affect. ABSENT: agitated Focused psych exam: ABSENT: delusional, paranoid, restlessness Skin exam: PRESENT: dry, normal color, warm. ABSENT: rash Results Laboratory Results: 04/20/20 10:17 04/20/20 10:17 04/20/20 04/20/20 04/20/20 10:17 10:17 10:17 WBC 4.5 RBC 4.17 Hgb 12.7 Hct 38.0 MCV 91 MCH 30.4 MCHC 33.4 RDW 12.8 Plt Count 189 Seg Neutrophils % 78.4 H Sodium 132.2 L Potassium 3.8 Chloride 97 L Carbon Dioxide 29 Anion Gap 6 BUN 11 Creatinine 0.76 Est GFR ( Amer) > 60 Glucose 104 Calcium 9.3 Magnesium 1.8 Total Bilirubin 0.4 AST 30 Alkaline Phosphatase 77 Total Protein 6.5 Albumin 4.0 TSH 0.42 L Urine Color Urine Appearance Urine pH Ur Specific [place] Urine Protein Urine Glucose (UA) Urine Ketones Urine Blood Urine Nitrite Ur Leukocyte Esterase Urine WBC (Auto) Urine RBC (Auto) 04/20/20 10:33 WBC RBC Hgb Hct MCV MCH MCHC RDW Plt Count Seg Neutrophils % Sodium Potassium Chloride Carbon Dioxide Anion Gap BUN Creatinine Est GFR ( Amer) Glucose Calcium Magnesium Total Bilirubin AST Alkaline Phosphatase Total Protein Albumin TSH Urine Color STRAW Urine Appearance CLEAR Urine pH 7.0 Ur Specific [place] 1.006 Urine Protein NEGATIVE Urine Glucose (UA) NEGATIVE Urine Ketones NEGATIVE Urine Blood MODERATE H Urine Nitrite NEGATIVE Ur Leukocyte Esterase NEGATIVE Urine WBC (Auto) 0 Urine RBC (Auto) 4 04/20/20 10:17 CK-MB (CK-2) 2.64 Troponin I 0.016 Assessment and Plan - Diagnosis (1) High blood pressure Qualifiers: Hypertension type: essential hypertension Qualified Code(s): I10 - Essential (primary) hypertension Is this a current diagnosis for this admission?: Yes Plan: The patient's blood pressure was extremely high earlier today. She states that she started to feel anxious. She wondered if that was the cause of her high blood pressure. I told her that anxiety should not generate a systolic blood pressure greater than 180. She is on ramipril 2.5 mg at night and I will increase this to 5 mg. Hydralazine is available on an as-needed basis by intravenous. She may need additional adjustments in her medication. (2) Subendocardial ischemia Is this a current diagnosis for this admission?: Yes Plan: Flipped T waves laterally. This could be secondary to her hypertension. A repeat EKG is ordered for the morning. The first 2 troponins are negative. We will continue to monitor closely. She is already on statin therapy and I have added 81 mg aspirin daily (3) Prolonged Q-T interval on ECG Is this a current diagnosis for this admission?: Yes Plan: On the initial EKG the QT was 496 with a QTC of 524. A repeat EKG showed the QT to be 480 with a QTC at 511. She was recently on antidepressant medication and this may likely have generated the prolonged QT. We will check another troponin level in the morning and avoid QT prolongation medications. (4) Abnormal EKG Is this a current diagnosis for this admission?: Yes Plan: Flipped T waves laterally possibly related to her hypertension. Prolonged QT/QTc as well. Repeat EKG is ordered for the morning. The patient is also being seen by cardiology. (5) Hyponatremia Is this a current diagnosis for this admission?: Yes Plan: The patient was recently diagnosed with SIADH. I will continue her 1 L fluid restriction. In addition she will be on a low-fat diet for the time being. We will hold off on the low-sodium component initially. Monitor serum sodium with serial blood work. (6) Left carotid bruit Is this a current diagnosis for this admission?: Yes Plan: On exam the patient was noted to have a left carotid bruit. The patient does have a history of TIA. Carotid Doppler studies have been ordered. Consider an echocardiogram as well but will discuss this with cardiology. (7) Hyperlipidemia Qualifiers: Hyperlipidemia type: unspecified Qualified Code(s): E78.5 - Hyperlipidemia, unspecified Is this a current diagnosis for this admission?: Yes Plan: Continue atorvastatin (8) Anxiety and depression Is this a current diagnosis for this admission?: Yes Plan: The patient was recently weaned off of clonazepam, mirtazapine and venlafaxine. She does admit to some anxiety and she does present with a flat affect. At this point we will hold off on any of these medications certainly until her QT interval improves. Consider alternative medications if depression/anxiety still appears to be problematic. (9) Increased urinary frequency Is this a current diagnosis for this admission?: Yes Plan: Patient describes urgency and frequency malt volumes. This is typically suggestive of an overactive bladder. When her blood pressure and QT interval as well as ischemic changes resolve consider instituting a medication trial. (10) UTI (urinary tract infection) Qualifiers: Urinary tract infection type: site unspecified Is this a current diagnosis for this admission?: Yes Plan: The patient is on the last day of her antibiotic therapy for a urinary tract infection. Urinalysis today is benign with no suggestion of infection. Treatment completed and urinary tract infection previously diagnosed is re solved. (11) Colostomy status Is this a current diagnosis for this admission?: Yes Plan: History of colon cancer with resection and permanent colostomy. The patient does report that her stools have tended to be on the loose side. It is most likely from the recent antibiotic therapy. Will monitor closely. Routine stoma care. - Time Time Spent with patient: 35 or more minutes Medications reviewed and adjusted accordingly: Yes Anticipated Discharge Disposition: Home with Home Health Anticipated Discharge Timeframe: within 72 hours - Inpatient Certification Based on my medical assessment, after consideration of the patient's comorbidities, presenting symptoms, or acuity I expect that the services needed warrant INPATIENT care.: Yes I certify that my determination is in accordance with my understanding of Medicare's requirements for reasonable and necessary INPATIENT services [42 CFR 412.3e].: Yes Medical Necessity: Need Close Monitoring Due to Risk of Patient Decompensation, Need For Continuous Telemetry Monitoring, Risk of Diagnosis Which Will Require Inpatient Eval/Care/Monitoring, Other - Serial chemistries and troponin levels 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
[2020-04-20] MEDS ORDERED: MAG HYDROX/AL HYDROX/SIMETH SUSP 30 ML UDCUP PO PRN (14:51)
[2020-04-20] MEDS ORDERED: MAGNESIUM HYDROXIDE SUSP 30 ML UDCUP PO PRN (14:51)
[2020-04-20] MEDS ORDERED: ATORVASTATIN CALCIUM 80 MG TABLET PO SCH (18:00)
[2020-04-20] MEDS ORDERED: MELATONIN 5 MG TABLET PO PRN (20:12)
[2020-04-20] MEDS: FAMOTIDINE 20 MG TABLET PO SCH (21:27)
[2020-04-20] MEDS: HEPARIN SOD (PORCINE) 5,000 UNIT/ML 1 ML VIAL SUBCUT SCH (21:27)
[2020-04-20] MEDS: ACETAMINOPHEN 325 MG TABLET PO PRN (21:30)
[2020-04-20] MEDS ORDERED: RAMIPRIL 5 MG CAPSULE PO SCH (22:00)
[2020-04-20] MEDS ORDERED: RAMIPRIL 2.5 MG CAPSULE PO SCH (22:00)
[2020-04-20 23:45] VITALS: BP 128/63
[2020-04-21] MEDS: HEPARIN SOD (PORCINE) 5,000 UNIT/ML 1 ML VIAL SUBCUT SCH (06:20)
[2020-04-21 07:18] LABS: ANION GAP 6 (5-19); BLOOD UREA NITROGEN 8 mg/dL (7-20); CALCIUM 9.3 mg/dL (8.4-10.2); CARBON DIOXIDE 28 mmol/L (22-30); CHLORIDE 99 mmol/L (98-107); CHOLESTEROL 146.73 mg/dL (0-200); GLUCOSE 92 mg/dL (75-110); POTASSIUM 3.9 mmol/L (3.6-5.0); TRIGLYCERIDES 58 mg/dL (<150)
[2020-04-21 07:29] LABS: DIRECT LDL 44 mg/dL (<100)
[2020-04-21] MEDS ORDERED: HYDROCHLOROTHIAZIDE 12.5 MG TABLET PO SCH (08:00)
--- NOTE | 2020-04-21 08:04 | RADIOLOGY REPORT (SQ) ---
EXAM DESCRIPTION: CAROTID DOPPLER IMAGES COMPLETED DATE/TIME: 04/20/2020 8:30 pm REASON FOR STUDY: Left carotid bruit COMPARISON: None. TECHNIQUE: Grayscale ultrasound, Doppler velocity and spectra, and color Doppler images acquired of the extra-cranial carotid and vertebral arteries. Images stored on PACS. LIMITATIONS: None. FINDINGS: RIGHT CAROTID CCA Velocities: Within normal limits. ICA Velocities Peak systolic 100 cm/s. End diastolic 21 cm/s. Proximal ICA/CCA peak systolic ratio 1.0. Plaque is seen within the common carotid artery and bulb without flow limiting stenosis. LEFT CAROTID CCA Velocities: Within normal limits. ICA Velocities Peak systolic 111 cm/s. End diastolic 26 cm/s. Proximal ICA/CCA peak systolic ratio 1.1. Plaque is demonstrated within the proximal internal carotid artery without flow limiting stenosis. VERTEBRAL ARTERIES: Antegrade flow. Normal waveforms. SUBCLAVIAN ARTERIES: No finding. OTHER: No other significant finding. IMPRESSION: Atherosclerotic plaque without flow limiting stenosis. COMMENT: Quality ID #[id number]: Velocity criteria are extrapolated from the diameter data as defined by t he Society of Radiologists in Ultrasound Consensus Conference. Radiology 2003: 229; 340-346. TECHNICAL DOCUMENTATION: JOB ID: [id number] 2010 [employer]- All Rights Reserved Reading location - IP/workstation name: [email or web address]
--- NOTE | 2020-04-21 09:40 | EKG REPORT ---
SEVERITY:- ABNORMAL ECG - SINUS RHYTHM PROBABLE LEFT ATRIAL ABNORMALITY LEFT ANTERIOR FASCICULAR BLOCK ABNORMAL T, PROBABLE ISCHEMIA, ANT-LAT LEADS PROLONGED QT INTERVAL : Confirmed by: Aleksander Kingston 21-Apr-2020 09:39:39
--- NOTE | 2020-04-21 09:40 | EKG REPORT ---
SEVERITY:- ABNORMAL ECG - SINUS RHYTHM PROBABLE LEFT ATRIAL ABNORMALITY INCOMPLETE RBBB AND LAFB ABNORMAL T, PROBABLE ISCHEMIA, WIDESPREAD PROLONGED QT INTERVAL : Confirmed by: Aleksander Kingston 21-Apr-2020 09:39:10
--- NOTE | 2020-04-21 09:40 | EKG REPORT ---
SEVERITY:- ABNORMAL ECG - SINUS RHYTHM INCOMPLETE RBBB AND LAFB ABNORMAL T, PROBABLE ISCHEMIA, ANT-LAT LEADS PROLONGED QT INTERVAL : Confirmed by: Aleksander Kingston 21-Apr-2020 09:39:29
[2020-04-21] MEDS: FAMOTIDINE 20 MG TABLET PO SCH (09:42)
[2020-04-21] MEDS: ACETAMINOPHEN 325 MG TABLET PO PRN (09:42)
[2020-04-21] MEDS ORDERED: ASPIRIN 81 MG TABLET, ENT COATED PO SCH (10:00)
[2020-04-21] MEDS ORDERED: ALPRAZOLAM 0.5 MG TABLET PO ONE (12:00)
--- NOTE | 2020-04-21 12:35 | PDOC DISCHARGE SUMMARY ---
Impression - Admit/DC Date/PCP Admission Date/Primary Care Provider: 04/20/20 12:00 Discharge Date: 04/21/20 - Discharge Diagnosis (1) High blood pressure Is this a current diagnosis for this admission?: Yes (2) Subendocardial ischemia Is this a current diagnosis for this admission?: Yes (3) Prolonged Q-T interval on ECG Is this a current diagnosis for this admission?: Yes (4) Abnormal EKG Is this a current diagnosis for this admission?: Yes (5) Hyponatremia Is this a current diagnosis for this admission?: Yes (6) Left carotid bruit Is this a current diagnosis for this admission?: Yes (7) Hyperlipidemia Is this a current diagnosis for this admission?: Yes (8) Anxiety and depression Is this a current diagnosis for this admission?: Yes (9) Increased urinary frequency Is this a current diagnosis for this admission?: Yes (10) UTI (urinary tract infection) Is this a current diagnosis for this admission?: Yes (11) Colostomy status Is this a current diagnosis for this admission?: Yes - Additional Information Resuscitation Status: Do Not Resuscitate Discharge Diet: Cardiac Discharge Activity: Activity As Tolerated, Slowly Increase Activity Referrals: VENKAT LEONARD DO [NO LOCAL MD] - 05/05/20 11:00 am MATEO SHEN MD [ACTIVE STAFF] - 04/27/20 10:45 am (Please advise patient to bring ID, Insurance cards and a list of all medications taking.) Prescriptions: Ramipril [Altace 5 mg Capsule] 5 mg PO QPM #30 capsule Amlodipine Besylate [Norvasc 5 mg Tablet] 5 mg PO DAILY #30 tablet Alprazolam [Xanax 0.25 mg Tablet] 0.25 mg PO Q12 PRN #5 tablet PRN Reason: Anxiety Home Medications: Aspirin [Adult Low Dose Aspirin EC] 81 mg PO DAILY 04/20/20 Atorvastatin Calcium [Lipitor 80 mg Tablet] 80 mg PO QPM 04/20/20 Cyanocobalamin (Vitamin B-12) [Vitamin B-12 Inj 1000 Mcg/1 ml Vial] 1,000 mcg INJ .QMONTHLY 04/20/20 Alprazolam [Xanax 0.25 mg Tablet] 0.25 mg PO Q12 PRN #5 tablet 04/21/20 Amlodipine Besylate [Norvasc 5 mg Tablet] 5 mg PO DAILY #30 tablet 04/21/20 Melatonin [Melatonin 5 mg Tablet] 5 mg PO HSP PRN tablet 04/21/20 Ramipril [Altace 5 mg Capsule] 5 mg PO QPM #30 capsule 04/21/20 History of Present Illiness History of Present Illness: JAYME GALLEGOS is a 84 year old female with a past medical history of hyponatremia and probable TIA in December. She has hypertension, hyperlipidemia, possible anxiety and a recent urinary tract infection. She also has urinary frequency. She states that she had a very restless night. She woke up 4-5 times to urinate. This morning she did not feel well and her daughter checked her blood pressure and it was 188/88. The patient did have a headache and possible palpitations. She had no diaphoresis, nausea or vomiting. She has recently been weaned off of multiple medications for anxiety and depression including clonazepam, venlafaxine and mirtazapine. It was also hoped that her appetite would improve with the mirtazapine. Once the blood pressure was realized the patient's daughter brought her to the emergency department. Evaluation in the emergency department still revealed hypertension. She was given 10 mg of IV hydralazine and her blood pressure improved. She did have new flipped T waves from a fairly recent EKG. She will be seen by cardiology. We will be admitting her to the hospitalist service to treat her elevated blood pressure, run serial troponins and monitor her EKG. Hospital Course Hospital Course: brief hospitalization. Blood pressure responded nicely. Physical Exam Vital Signs: Temp Pulse Resp BP Pulse Ox 98.1 F 89 16 128/63 H 98 04/20/20 23:44 04/21/20 07:00 04/20/20 23:44 04/20/20 23:44 04/20/20 23:44 Intake & Output 04/20/20 04/21/20 04/22/20 06:59 06:59 06:59 Intake Total 740 Balance 740 Weight 53.5 kg General appearance: PRESENT: no acute distress Neck exam: PRESENT: carotid bruit Respiratory exam: PRESENT: clear to auscultation kyle, symmetrical, unlabored. ABSENT: rales, rhonchi, tachypnea, wheezes Cardiovascular exam: PRESENT: RRR, +S1, +S2 GI/Abdominal exam: PRESENT: normal bowel sounds, soft. ABSENT: tenderness Rectal exam: PRESENT: deferred Gentrourinary exam: ABSENT: indwelling catheter Results Laboratory Results: WBC 4.5 10^3/uL (4.0-10.5) 04/20/20 10:17 RBC 4.17 10^6/uL (3.72-5.28) 04/20/20 10:17 Hgb 12.7 g/dL (12.0-15.5) 04/20/20 10:17 Hct 38.0 % (36.0-47.0) 04/20/20 10:17 MCV 91 fl (80-97) 04/20/20 10:17 MCH 30.4 pg (27.0-33.4) 04/20/20 10:17 MCHC 33.4 g/dL (32.0-36.0) 04/20/20 10:17 RDW 12.8 % (11.5-14.0) 04/20/20 10:17 Plt Count 189 10^3/uL (150-450) 04/20/20 10:17 Lymph % (Auto) 13.2 % (13-45) 04/20/20 10:17 Jerome % (Auto) 7.3 % (3-13) 04/20/20 10:17 Eos % (Auto) 0.6 % (0-6) 04/20/20 10:17 Baso % (Auto) 0.5 % (0-2) 04/20/20 10:17 Absolute Neuts (auto) 3.5 10^3/uL (1.7-8.2) 04/20/20 10:17 Absolute Lymphs (auto) 0.6 10^3/uL (0.5-4.7) 04/20/20 10:17 Absolute Monos (auto) 0.3 10^3/uL (0.1-1.4) 04/20/20 10:17 Absolute Eos (auto) 0.0 10^3/uL (0.0-0.6) 04/20/20 10:17 Absolute Basos (auto) 0.0 10^3/uL (0.0-0.2) 04/20/20 10:17 Seg Neutrophils % 78.4 % (42-78) H 04/20/20 10:17 Sodium 132.7 mmol/L (137-145) L 04/21/20 06:08 Potassium 3.9 mmol/L (3.6-5.0) 04/21/20 06:08 Chloride 99 mmol/L (98-107) 04/21/20 06:08 Carbon Dioxide 28 mmol/L (22-30) 04/21/20 06:08 Anion Gap 6 (5-19) 04/21/20 06:08 BUN 8 mg/dL (7-20) 04/21/20 06:08 Creatinine 0.76 mg/dL (0.52-1.25) 04/21/20 06:08 Est GFR ( Amer) > 60 (>60) 04/21/20 06:08 Est GFR (MDRD) Non-Af > 60 (>60) 04/21/20 06:08 Glucose 92 mg/dL (75-110) 04/21/20 06:08 Calcium 9.3 mg/dL (8.4-10.2) 04/21/20 06:08 Magnesium 1.8 mg/dL (1.6-2.3) 04/21/20 06:08 Total Bilirubin 0.4 mg/dL (0.2-1.3) 04/20/20 10:17 Direct Bilirubin 0.0 mg/dL (0.0-0.4) 04/20/20 10:17 Neonat Total Bilirubin Not Reportable 04/20/20 10:17 Neonat Direct Bilirubin Not Reportable 04/20/20 10:17 Neonat Indirect Bili Not Reportable 04/20/20 10:17 AST 30 U/L (14-36) 04/20/20 10:17 ALT 26 U/L (<35) 04/20/20 10:17 Alkaline Phosphatase 77 U/L (38-126) 04/20/20 10:17 CK-MB (CK-2) 2.64 ng/mL (<4.55) 04/20/20 10:17 Troponin I 0.027 ng/mL 04/20/20 21:59 Total Protein 6.5 g/dL (6.3-8.2) 04/20/20 10:17 Albumin 4.0 g/dL (3.5-5.0) 04/20/20 10:17 Triglycerides 58 mg/dL (<150) 04/21/20 06:08 Cholesterol 146.73 mg/dL (0-200) 04/21/20 06:08 LDL Cholesterol Direct 44 mg/dL (<100) 04/21/20 06:08 VLDL Cholesterol 12.0 mg/dL (10-31) 04/21/20 06:08 HDL Cholesterol 93 mg/dL (>40) 04/21/20 06:08 TSH 0.42 uIU/mL (0.47-4.68) L 04/20/20 10:17 Free T4 1.35 ng/dL (0.78-2.19) 04/20/20 10:17 Free T3 pg/mL 3.14 pg/mL (2.77-5.27) 04/20/20 10:17 Urine Color STRAW 04/20/20 10:33 Urine Appearance CLEAR 04/20/20 10:33 Urine pH 7.0 (5.0-9.0) 04/20/20 10:33 Ur Specific [place] 1.006 04/20/20 10:33 Urine Protein NEGATIVE mg/dL (NEGATIVE) 04/20/20 10:33 Urine Glucose (UA) NEGATIVE mg/dL (NEGATIVE) 04/20/20 10:33 Urine Ketones NEGATIVE mg/dL (NEGATIVE) 04/20/20 10:33 Urine Blood MODERATE (NEGATIVE) H 04/20/20 10:33 Urine Nitrite NEGATIVE (NEGATIVE) 04/20/20 10:33 Urine Bilirubin NEGATIVE (NEGATIVE) 04/20/20 10:33 Urine Urobilinogen NEGATIVE mg/dL (<2.0) 04/20/20 10:33 Ur Leukocyte Esterase NEGATIVE (NEGATIVE) 04/20/20 10:33 Urine WBC (Auto) 0 /HPF 04/20/20 10:33 Urine RBC (Auto) 4 /HPF 04/20/20 10:33 Squamous Epi Cells Auto <1 /HPF 04/20/20 10:33 Urine Mucus (Auto) RARE /LPF 04/20/20 10:33 Urine Ascorbic Acid NEGATIVE (NEGATIVE) 04/20/20 10:33 04/20/20 04/20/20 04/20/20 10:17 14:54 21:59 CK-MB (CK-2) 2.64 Troponin I 0.016 0.027 0.027 Impressions: Carotid Doppler Study 04/20/20 00:00 IMPRESSION: Atherosclerotic plaque without flow limiting stenosis. Plan Health Concerns: uncontrolled htn with carotid bruit Plan of Treatment: F/U with cardiology and monitor QT. Comply with medication regimen Goals: good bp control and aggressive control of lipids to prevent progression of atherosclerosis in carotids Time Spent: Greater than 30 Minutes Stroke Is this a Stroke Patient?: No Acute Heart Failure - Is this a Heart Failure Patient?: No
[2020-04-21] MEDS ORDERED: ALPRAZOLAM 0.25 MG TABLET PO ONE (12:45)
--- NOTE | 2020-04-21 13:58 | PDOC PROGRESS REPORT ---
Subjective Progress Note for:: 04/21/20 Subjective:: Dysuria is getting better. No chest pain or dyspnea. No palpitations. Reason For Visit: HYPERTENSION,ABNORMAL EKG,HYPERLIPIDEMIA Physical Exam Vital Signs: Temp Pulse Resp BP Pulse Ox 98.1 F 89 16 128/63 H 98 04/20/20 23:44 04/21/20 07:00 04/20/20 23:44 04/20/20 23:44 04/20/20 23:44 Intake & Output 04/20/20 04/21/20 04/22/20 06:59 06:59 06:59 Intake Total 740 Balance 740 Weight 53.5 kg General appearance: PRESENT: no acute distress, cooperative, well-developed, well-nourished Head exam: PRESENT: atraumatic, normocephalic Eye exam: PRESENT: conjunctiva pink, EOMI Mouth exam: PRESENT: moist Respiratory exam: PRESENT: clear to auscultation kyle, symmetrical, unlabored Cardiovascular exam: PRESENT: RRR, +S1, +S2 Pulses: PRESENT: normal radial pulses GI/Abdominal exam: PRESENT: soft Rectal exam: PRESENT: deferred Neurological exam: PRESENT: alert, awake, oriented to person, oriented to place, oriented to time, oriented to situation Psychiatric exam: PRESENT: appropriate affect Skin exam: PRESENT: dry, intact, normal color Results Laboratory Results: 04/20/20 10:17 04/21/20 06:08 04/20/20 04/21/20 10:17 06:08 Sodium 132.7 L Potassium 3.9 Chloride 99 Carbon Dioxide 28 Anion Gap 6 BUN 8 Creatinine 0.76 Est GFR ( Amer) > 60 Glucose 92 Calcium 9.3 Magnesium 1.8 Triglycerides 58 Cholesterol 146.73 LDL Cholesterol Direct 44 VLDL Cholesterol 12.0 HDL Cholesterol 93 Free T4 1.35 Free T3 pg/mL 3.14 04/20/20 04/20/20 04/20/20 10:17 14:54 21:59 CK-MB (CK-2) 2.64 Troponin I 0.016 0.027 0.027 EKG Comments: Twelve-lead EKG Sinus rhythm 65 bpm, left atrial abnormality QTC is 512 ms. Impressions: Carotid Doppler Study 04/20/20 00:00 IMPRESSION: Atherosclerotic plaque without flow limiting stenosis. Assessment & Plan - Diagnosis (1) High blood pressure Qualifiers: Hypertension type: essential hypertension Qualified Code(s): I10 - Essential (primary) hypertension Is this a current diagnosis for this admission?: Yes Plan: Continue ramipril 5 mg p.o. daily No added salt in the diet (2) Prolonged Q-T interval on ECG Is this a current diagnosis for this admission?: Yes Plan: QT interval is getting better Avoid QT prolonging medications I suspect that that the combination of infection together with QT prolonging medications likely antidepressants resulted in market repolarization abnormality on her EKGs. I do not believe that these are due to myocardial ischemia especially given absence of chest pain. We will probably need to avoid polypharmacy and especially QT prolonging medications with this elderly lady. (3) UTI (urinary tract infection) Qualifiers: Urinary tract infection type: site unspecified Is this a current diagnosis for this admission?: Yes Plan: Treatment of UTI with preferably antibiotics that do not prolong the QT
== END 2020-04-21 14:46 | disposition home or self-care (01) ==
LOC: ER 09:54 → EH 12:00 → INTOOBSV 12:00 → 3S 17:36
PROVIDERS: ADMIT Hospitalist; ATTEND Hospitalist
DX: I10 Essential (primary) hypertension (principal); I24.8 Other forms of acute ischemic heart disease; I45.81 Long QT syndrome; E87.1 Hypo-osmolality and hyponatremia; R09.89 Other specified symptoms and signs involving the circulatory and respiratory systems; E78.5 Hyperlipidemia, unspecified; F41.9 Anxiety disorder, unspecified; F32.9 Major depressive disorder, single episode, unspecified; N39.0 Urinary tract infection, site not specified; I45.2 Bifascicular block; R41.3 Other amnesia; R01.1 Cardiac murmur, unspecified; K13.79 Other lesions of oral mucosa; R35.0 Frequency of micturition; R39.15 Urgency of urination; Z93.3 Colostomy status; Z79.82 Long term (current) use of aspirin; Z79.899 Other long term (current) drug therapy; Z86.73 Personal history of transient ischemic attack (TIA), and cerebral infarction without residual deficits; Z85.038 Personal history of other malignant neoplasm of large intestine; Z66 Do not resuscitate; Z82.49 Family history of ischemic heart disease and other diseases of the circulatory system; Z90.49 Acquired absence of other specified parts of digestive tract
CPT/HCPCS: 93005 ×2; 99285; 96360; 36415 ×2; 84439; 82553; 83735 ×2; 84443; 85025; 80048; 80053; 81001; 84484; 84481; 80061; 93880; 93010 ×2; G0378 ×3; A9270 ×9; J1644 ×2; J3490 ×2; J7030

== ENCOUNTER 2020-04-24 06:49 | Emergency (ER) | payer MEDICARE ==
[2020-04-24 08:29] LABS: APPEARANCE,URINE SLIGHTLY-CLOUDY; BILIRUBIN,URINE NEGATIVE (NEGATIVE); COLOR,URINE YELLOW; GLUCOSE, URINE NEGATIVE (NEGATIVE); KETONES,URINE NEGATIVE (NEGATIVE); LEUKOCYTE ESTERASE,URINE NEGATIVE (NEGATIVE); NITRITE,URINE NEGATIVE (NEGATIVE); PROTEIN,URINE NEGATIVE (NEGATIVE); URINE SPECIFIC GRAVITY 1.011; UROBILINOGEN,URINE NEGATIVE mg/dL (<2.0)
[2020-04-24 08:32] LABS: ABSOLUTE LYMPHOCYTES (AUTO) 0.6 10^3/uL (0.5-4.7); ABSOLUTE MONOCYTES (AUTO) 0.3 10^3/uL (0.1-1.4); ABSOLUTE NEUT (AUTO) 2.1 10^3/uL (1.7-8.2); BASOPHILS % (AUTO) 0.7 % (0-2); EOSINOPHILS % (AUTO) 1.5 % (0-6); HEMATOCRIT 37.4 % (36.0-47.0); HEMOGLOBIN 12.8 g/dL (12.0-15.5); LYMPHOCYTES % (AUTO) 20.8 % (13-45); MEAN CORPUSCULAR HEMOGLOBIN 31.3 pg (27.0-33.4); MEAN CORPUSCULAR HGB CONC 34.3 g/dL (32.0-36.0); MEAN CORPUSCULAR VOLUME 91 fl (80-97); PLATELET COUNT 165 10^3/uL (150-450); RED BLOOD COUNT 4.11 10^6/uL (3.72-5.28); RED CELL DISTRIBUTION WIDTH 12.4 % (11.5-14.0); TOTAL CELLS COUNTED % (AUTO) 100 %
--- NOTE | 2020-04-24 08:35 | RADIOLOGY REPORT (SQ) ---
EXAM DESCRIPTION: CHEST SINGLE VIEW IMAGES COMPLETED DATE/TIME: 04/24/2020 8:19 am REASON FOR STUDY: high blood pressure COMPARISON: 03/19/2020 FINDINGS: One view chest AP portable upright. Markedly hyperinflated lungs, COPD. This is chronic. Lungs are otherwise clear with normal cardiome diastinal silhouette, no pneumothorax and intact bones. TECHNICAL DOCUMENTATION: JOB ID: [id number] Reading location - IP/workstation name: [email or web address]
[2020-04-24 08:47] LABS: ALBUMIN 3.9 g/dL (3.5-5.0); ALKALINE PHOSPHATASE 71 U/L (38-126); ANION GAP 7 (5-19); ASPARTATE AMINO TRANSFERASE 35 U/L (14-36); BILIRUBIN,DIRECT 0.2 mg/dL (0.0-0.4); BILIRUBIN,TOTAL 0.7 mg/dL (0.2-1.3); BLOOD UREA NITROGEN 10 mg/dL (7-20); CALCIUM 9.7 mg/dL (8.4-10.2); CARBON DIOXIDE 27 mmol/L (22-30); CHLORIDE 95 mmol/L (98-107); CREATINE KINASE 65 U/L (30-135); GLUCOSE 102 mg/dL (75-110); POTASSIUM 4.2 mmol/L (3.6-5.0); TOTAL PROTEIN 6.7 g/dL (6.3-8.2)
[2020-04-24] MEDS ORDERED: NORMAL SALINE 500 ML IV ONE (09:46)
[2020-04-24] MEDS ORDERED: ACETAMINOPHEN 325 MG TABLET PO ONE (13:53)
--- NOTE | 2020-04-24 14:05 | ER Document Report ---
Entered by DONTA FRANKLIN SCRIBE 04/24/20 1027 Acting as scribe for:BAILEE HURTADO MD ED General - General Chief Complaint: High Blood Pressure Stated Complaint: HIGH BLOOD PRESSURE Time Seen by Provider: 04/24/20 07:56 Information source: Patient, Relative Notes: This 84 year old female patient presents to the emergency department today with complaints of high blood pressure. Patient's daughter is at bedside and providing history. Patient's blood pressure was 187/83 early this morning and 190/85 before leaving home, per daughter. Patient was given x4 baby aspirin instead of her usual dose of x1 this morning by her daughter. Patient was recently discharged x3 days ago from [facility] after being admitted for high blood pressure, hyponatremia, and subendocardial ischemia. Patient has been changing medications for depression due to them affecting her sodium. Patient stopped taking her mirtazapine x1 week ago and stopped taking venlafaxine around x1 month ago. Patient reports increased burping and denies chest pain. TRAVEL OUTSIDE OF THE [place] IN LAST 30 DAYS: No - Related Data Allergies/Adverse Reactions: Penicillins Allergy (Verified 04/06/20 07:32) Home Medications: meds in the computer Past Medical History - General Information source: Patient, Relative - Social History Smoking Status: Never Smoker Cigarette use (# per day): No Family History: CAD, Hypertension, Other - Alcoholism Patient has homicidal ideation: No - Past Medical History Cardiac Medical History: Reports: Hx Hypertension Malignancy Medical History: Reports: Hx Colorectal Cancer GI Medical History: Reports: Hx Gastroesophageal Reflux Disease Psychiatric Medical History: Reports: Hx Depression Past Surgical History: Reports: Hx Appendectomy - colon resection, ostomy, Hx Colostomy - Is received 4 L of months symptoms no current, Other - Partial colectomy Review of Systems - Review of Systems Constitutional: No symptoms reported EENT: No symptoms reported Cardiovascular: See HPI, Other - high blood pressure. denies: Chest pain Respiratory: No symptoms reported Gastrointestinal: See HPI Genitourinary: No symptoms reported Female Genitourinary: No symptoms reported Musculoskeletal: No symptoms reported Skin: No symptoms reported Hematologic/Lymphatic: See HPI Neurological/Psychological: No symptoms reported -: Yes All other systems reviewed and negative Physical Exam - Vital signs Vitals: Temp Pulse Resp BP Pulse Ox 98.5 F 76 22 H 183/73 H 99 04/24/20 07:03 04/24/20 07:03 04/24/20 07:03 04/24/20 07:03 04/24/20 07:03 - General General appearance: Appears well, Alert - HEENT Head: Normocephalic, Atraumatic Eyes: Normal Pupils: PERRL - Respiratory Respiratory status: No respiratory distress Chest status: Nontender Breath sounds: Normal Chest palpation: Normal - Cardiovascular Rhythm: Regular Heart sounds: Normal auscultation Murmur: No - Abdominal Inspection: Normal Distension: No distension Bowel sounds: Normal Tenderness: Nontender - Extremities General upper extremity: Normal inspection. No: Edema General lower extremity: Normal inspection. No: Edema - Neurological Neuro grossly intact: Yes Cognition: Normal Orientation: AAOx4 Speech: Normal - Psychological Associated symptoms: Normal affect, Normal mood - Skin Skin Temperature: Warm Skin Moisture: Dry Skin Color: Normal Course - Re-evaluation Re-evalutation: 04/24/20 13:58 Patient resting comfortably not showing any signs of stress. However patient d oes report that she is having some maxillary sinus headache at this time. Patient has tenderness over the maxillary sinuses but no fever chills no forehead frontal sinus tenderness TMs are clear pharynx without any injection no erythema. Patient is alert and oriented and does not appear to be in any significant distress recommended patient received Tylenol now prior to discharge and to consider taking Tylenol Cold and sinus. - Vital Signs Vital signs: Temp Pulse Resp BP Pulse Ox 98.5 F 76 21 H 162/72 H 99 04/24/20 07:03 04/24/20 07:03 04/24/20 08:01 04/24/20 08:01 04/24/20 08:05 04/24/20 13:59 Vital signs stable - Laboratory Result Diagrams: 04/24/20 08:00 04/24/20 08:00 Laboratory results interpreted by me: 04/24/20 04/24/20 04/24/20 08:00 08:00 08:00 WBC 3.0 L Sodium 129.4 L Chloride 95 L Urine Blood SMALL H 04/24/20 13:59 Patient has chronic hyponatremia today her sodium is 129 patient has a low white blood cell count 3.0. 04/24/20 14:00 Patient troponin has been negative x2. - Diagnostic Test Radiology reviewed: Image reviewed, Reports reviewed Radiology results interpreted by me: 04/24/20 14:02 Chest x-ray shows COPD no other acute process no infiltrate. - EKG Interpretation by Me Additional EKG results interpreted by me: 04/24/20 14:02 Twelve-lead EKG shows a normal sinus rhythm rate of 78 incomplete right bundle branch block and left anterior fascicular block abnormal T waves in the lateral leads and a chronic no change from prior EKG borderline prolonged QT interval. Artifact is noted in the twelve-lead EKG read by the computer shows atrial fib but patient is not in atrial fib she has a normal sinus rhythm rate. Discharge - Discharge Clinical Impression: Hypertension, Anxiety and depression, Sinus headache Condition: Stable Disposition: HOME, SELF-CARE Instructions: High Blood Pressure, Requiring Treatment ([facility]) Additional Instructions: You most likely have sinus headaches due to the pain that you indicated when I pushed on your maxillary sinuses today. I recommend that you consider taking Tylenol Cold and sinus as needed to to help control your sinus headaches. Continue all your same other medications that you are on and follow-up with your primary care physician. I personally performed the services described in the documentation, reviewed and edited the documentation which was dictated to the scribe in my presence, and it accurately records my words and actions.
[2020-04-24 14:33] VITALS: BP 153/78
--- NOTE | 2020-04-24 20:24 | EKG REPORT ---
SEVERITY:- ABNORMAL ECG - SINUS RHYTHM INCOMPLETE RBBB AND LAFB ABNORMAL T, PROBABLE ISCHEMIA, LATERAL LEADS BORDERLINE PROLONGED QT INTERVAL : Confirmed by: Aleksander Kingston 24-Apr-2020 20:23:32
== END 2020-04-24 14:33 | disposition home or self-care (01) ==
LOC: ER 06:49
DX: I10 Essential (primary) hypertension (principal); F41.9 Anxiety disorder, unspecified; F32.9 Major depressive disorder, single episode, unspecified; R14.2 Eructation; R51 Headache; E87.1 Hypo-osmolality and hyponatremia; I45.2 Bifascicular block; Z79.82 Long term (current) use of aspirin; Z88.0 Allergy status to penicillin; Z87.19 Personal history of other diseases of the digestive system; J44.9 Chronic obstructive pulmonary disease, unspecified
CPT/HCPCS: 93005; 99285; 96361; 96374; 96375; 36415; 82553; 82550; 85025; 80053; 81001; 84484; 71045; 93010; A9270; J7040

== ENCOUNTER → 2020-05-19 | Outpatient (CLI) | payer MEDICARE | LOC: OD 14:24 | PROVIDERS: ATTEND Otolaryngology | DX: J30.9 Allergic rhinitis, unspecified (principal) | CPT/HCPCS: 36415; 82785; 86003 ==

== ENCOUNTER 2020-06-01 18:24 | Emergency (ER) | payer MEDICARE ==
--- NOTE | 2020-06-01 19:03 | ER Document Report ---
ED Medical Screen (RME) - General Chief Complaint: Headache Stated Complaint: HEADACHE Time Seen by Provider: 06/01/20 18:56 Primary Care Provider: HUGH CROCKER DO [Primary Care Provider] - Follow up as needed Information source: Patient, Relative Notes: Patient with headache for the past 4 months that worsened today. Patient also has had some shaking with occasional confusion. Patient was recently weaned off of her antidepressant medication and her family member thinks that this is contributing to her symptoms. Patient reports occasional shortness of breath. No chest discomfort. Patient with a history of hypertension, diabetes, anxiety and questionable dementia. I have greeted and performed a rapid initial assessment of this patient. A comprehensive ED assessment and evaluation of the patient, analysis of test results and completion of the medical decision making process will be conducted by additional ED providers. TRAVEL OUTSIDE OF THE [place] IN LAST 30 DAYS: No - Related Data Allergies/Adverse Reactions: Penicillins Allergy (Verified 06/01/20 18:57) Past Medical History - Past Medical History Cardiac Medical History: Reports: Hx Hypertension Pulmonary Medical History: Denies: Hx Asthma, Hx COPD, Hx Respiratory Failure Endocrine Medical History: Denies: Hx Hypothyroidism Renal/ Medical History: Denies: Hx End Stage Renal Disease Malignancy Medical History: Reports: Hx Colorectal Cancer GI Medical History: Reports: Hx Gastroesophageal Reflux Disease. Denies: Hx Hepatitis Musculoskeltal Medical History: Denies Hx Arthritis, Denies Hx Fibromyalgia Skin Medical History: Denies Hx Eczema, Denies Hx Psoriasis Psychiatric Medical History: Reports: Hx Depression Infectious Medical History: Denies: Hx Hepatitis Past Surgical History: Reports: Hx Appendectomy - colon resection, ostomy, Hx Colostomy - Is received 4 L of months symptoms no current, Other - Partial colectomy Physical Exam - Vital signs Vitals: Temp Pulse Resp BP Pulse Ox 97.9 F 88 28 H 211/63 H 100 06/01/20 18:28 06/01/20 18:28 06/01/20 18:28 06/01/20 18:28 06/01/20 18:28 - Respiratory Respiratory status: No respiratory distress - Neurological Neuro grossly intact: Yes [place] Coma Scale Eye Opening: Spontaneous Kath[place] Coma Scale Verbal: Oriented Kath[place] Coma Scale Motor: Obeys Commands Kathia Coma Scale Total: 15 Course - Vital Signs Vital signs: Temp Pulse Resp BP Pulse Ox 97.9 F 88 28 H 211/63 H 100 06/01/20 18:28 06/01/20 18:28 06/01/20 18:28 06/01/20 18:28 06/01/20 18:28 Doctor's Discharge - Discharge Referrals: HUGH CROCKER DO [Primary Care Provider] - Follow up as needed
[2020-06-01 19:31] LABS: APPEARANCE,URINE CLEAR; BILIRUBIN,URINE NEGATIVE (NEGATIVE); COLOR,URINE STRAW; GLUCOSE, URINE NEGATIVE (NEGATIVE); KETONES,URINE TRACE mg/dL (NEGATIVE); LEUKOCYTE ESTERASE,URINE NEGATIVE (NEGATIVE); NITRITE,URINE NEGATIVE (NEGATIVE); PROTEIN,URINE NEGATIVE (NEGATIVE); URINE SPECIFIC GRAVITY 1.003; UROBILINOGEN,URINE NEGATIVE mg/dL (<2.0)
--- NOTE | 2020-06-01 20:48 | RADIOLOGY REPORT (SQ) ---
EXAM DESCRIPTION: CT HEAD WITHOUT IV CONTRAST COMPLETED DATE/TME: 06/01/2020 19:01 CLINICAL HISTORY: 84 years, Female, [place] COMPARISON: CT from 03/19/2020. TECHNIQUE: Axial images without IV contrast. Sagittal coronal reconstruction. Images stored on PACS. All CT scanners at this facility use dose modulation, iterative reconstruction, and/or weight based dosing when appropriate to reduce radiation dose to as low as reasonably achievable (ALARA). FINDINGS: Normal size ventricles. Non prominent cortical atrophy. [id number] periventricular white matter hypodensities chronic in nature. Atherosclerotic disease involving the distal internal carotid arteries. No acute intra-axial or extra-axial abnormalities. Paranasal sinuses, mastoid air cells and bony calvarium are unremarkable. IMPRESSION: 1. Chronic periventricular white matter changes. 2. No acute findings.
--- NOTE | 2020-06-01 20:51 | RADIOLOGY REPORT (SQ) ---
EXAM DESCRIPTION: XR CHEST 1 VIEW COMPLETED DATE/TME: 06/01/2020 19:01 CLINICAL HISTORY: 84 years, Female, [place] COMPARISON: 04/24/2020 TECHNIQUE: Upright AP portable chest x-ray FINDINGS: Mild cardiomegaly. No suspicious mediastinal widening. Prominent hyperinflation. No acute lung pleural bone abnormalities. IMPRESSION: COPD/emphysema. Mild cardiomegaly. No acute findings.
[2020-06-01 21:19] LABS: ABSOLUTE EOSINOPHILS # (AUTO) 0.1 10^3/uL (0.0-0.6); ABSOLUTE MONOCYTES (AUTO) 0.6 10^3/uL (0.1-1.4); ABSOLUTE NEUT (AUTO) 4.3 10^3/uL (1.7-8.2); BASOPHILS % (AUTO) 0.7 % (0-2); EOSINOPHILS % (AUTO) 0.9 % (0-6); HEMATOCRIT 35.8 % (36.0-47.0); HEMOGLOBIN 12.7 g/dL (12.0-15.5); LYMPHOCYTES % (AUTO) 16.3 % (13-45); MEAN CORPUSCULAR HGB CONC 35.4 g/dL (32.0-36.0); MEAN CORPUSCULAR VOLUME 88 fl (80-97); MONOCYTES % (AUTO) 9.7 % (3-13); PLATELET COUNT 247 10^3/uL (150-450); RED BLOOD COUNT 4.09 10^6/uL (3.72-5.28); RED CELL DISTRIBUTION WIDTH 12.5 % (11.5-14.0); SEGMENTED NEUTROPHILS % (AUTO) 72.4 % (42-78); TOTAL CELLS COUNTED % (AUTO) 100 %
[2020-06-01 21:35] LABS: ALBUMIN 4.1 g/dL (3.5-5.0); ALKALINE PHOSPHATASE 72 U/L (38-126); ANION GAP 8 (5-19); ASPARTATE AMINO TRANSFERASE 42 U/L (14-36); BILIRUBIN,DIRECT 0.2 mg/dL (0.0-0.4); BILIRUBIN,TOTAL 0.5 mg/dL (0.2-1.3); BLOOD UREA NITROGEN 13 mg/dL (7-20); CALCIUM 10.6 mg/dL (8.4-10.2); CARBON DIOXIDE 31 mmol/L (22-30); CHLORIDE 83 mmol/L (98-107); GLUCOSE 111 mg/dL (75-110); POTASSIUM 3.9 mmol/L (3.6-5.0); TOTAL PROTEIN 6.4 g/dL (6.3-8.2)
[2020-06-01] MEDS ORDERED: NORMAL SALINE 1000 ML 1,000 ML IV ONE (22:13)
--- NOTE | 2020-06-01 22:15 | ER Document Report ---
ED General - General TRAVEL OUTSIDE OF THE [place] IN LAST 30 DAYS: No - Related Data Home Medications: xanax. ramipril <GUSTAVO RODRIGUEZ - Last Filed: 06/01/20 22:53> <NOELLE ROSALES - Last Filed: 06/02/20 01:52> - General Chief Complaint: Headache Stated Complaint: HEADACHE Time Seen by Provider: 06/01/20 18:56 Primary Care Provider: HUGH CROCKER DO [Primary Care Provider] - Follow up as needed - HPI Notes: Patient is an 84-year-old female presents to the emergency department for evaluation. History is primarily obtained from the daughter, Tahira. The patient states she does have a mild headache, but it is not severe. She states she is had it for some time. She denies any other acute issues. Patient's daughter states that the patient was recently hospitalized. She was taken off her ve nlafaxine and mirtazapine. Since then she has been having tearful episodes, episodes of shaking, described as panic attacks. She states that normally she is given Xanax, as prescribed by her primary care provider, which seems to be helpful. They are just concerned as it seems to be interfering with the quality of her life. They state today she seemed slightly more confused, but they attributed that to the anxiety. They did not have as much relief with the Xanax. (GUSTAVO RODRIGUEZ) - Related Data Allergies/Adverse Reactions: Penicillins Allergy (Verified 06/01/20 18:57) Past Medical History - General Information source: Patient, Relative - Social History Smoking Status: Never Smoker Chew tobacco use (# tins/day): No Frequency of alcohol use: None Drug Abuse: None Family History: CAD, Hypertension, Other - Alcoholism Patient has homicidal ideation: No - Past Medical History Cardiac Medical History: Reports: Hx Hypertension Pulmonary Medical History: Denies: Hx Asthma, Hx COPD, Hx Respiratory Failure Endocrine Medical History: Denies: Hx Hypothyroidism Renal/ Medical History: Denies: Hx End Stage Renal Disease Malignancy Medical History: Reports: Hx Colorectal Cancer GI Medical History: Reports: Hx Gastroesophageal Reflux Disease. Denies: Hx Hepatitis Musculoskeletal Medical History: Denies Hx Arthritis, Denies Hx Fibromyalgia Skin Medical History: Denies Hx Eczema, Denies Hx Psoriasis Psychiatric Medical History: Reports: Hx Depression Infectious Medical History: Denies: Hx Hepatitis Past Surgical History: Reports: Hx Appendectomy - colon resection, ostomy, Hx Colostomy - Is received 4 L of months symptoms no current, Other - Partial colectomy <GUSTAVO RODRIGUEZ - Last Filed: 06/01/20 22:53> Review of Systems - Review of Systems Constitutional: No symptoms reported EENT: No symptoms reported Cardiovascular: No symptoms reported Respiratory: No symptoms reported Gastrointestinal: No symptoms reported Genitourinary: No symptoms reported Musculoskeletal: No symptoms reported Skin: No symptoms reported Neurological/Psychological: See HPI <GUSTAVO RODRIGUEZ - Last Filed: 06/01/20 22:53> Physical Exam <GUSTAVO RODRIGUEZ - Last Filed: 06/01/20 22:53> - Vital signs Vitals: Temp Pulse Resp BP Pulse Ox 97.9 F 88 28 H 211/63 H 100 06/01/20 18:28 06/01/20 18:28 06/01/20 18:28 06/01/20 18:28 06/01/20 18:28 - Notes Notes: This is a frail-appearing 84-year-old female who appears younger than her stated age, but in no acute distress. Vital signs reviewed, please refer to chart. Head is normocephalic, atraumatic. Pupils equal round, reactive to light. Neck is supple without meningismus. Heart is regular rate and rhythm. Lungs are clear to auscultation bilaterally. Abdomen is soft, colostomy in place without surrounding erythema, nontender, normoactive bowel sounds throughout. Extremities without cyanosis, clubbing. Posterior calves are nontender. Peripheral pulses are equal. Skin is warm and dry. Patient is awake, alert, cooperative with examiner. She is alert and oriented to person and place, tells me she is not really sure of the year, but otherwise knows that May or June. She moves all 4 extremities spontaneously. No gross facial asymmetry. 4+ out of 5 strength throughout all extremities. Sensation is intact. (GUSTAVO RODRIGUEZ) Course - Laboratory Result Diagrams: 06/01/20 20:55 06/01/20 20:55 - Diagnostic Test Radiology reviewed: Reports reviewed <GUSTAVO RODRIGUEZ - Last Filed: 06/01/20 22:53> - Laboratory Result Diagrams: 06/01/20 20:55 06/01/20 20:55 <NOELLE ROSALES - Last Filed: 06/02/20 01:52> - Re-evaluation Re-evalutation: 06/01/20 22:40 Patient presents to the emergency department for evaluation. She seems to be having problems with increased anxiety and depression. I did review her chart recently, and she was taken off of these medications secondary to QT prolongation. She seems to be having increased depression and anxiety as a result of it. Her laboratory investigations were ordered. Her sodium showed a significant decrease from prior. She is already on fluid restrictions at home, they are adding salt to her food, have her on electrolyte replacement solutions. I do have serum osmolality, urine osmolality pending. Her sodium in her urine is low. I do not believe she meets acute inpatient treatment criteria for this at this time, but avoiding appropriate test to determine appropriate outpatient treatment. Beyond that, I was able to obtain a quick phone consultation with Dr. Dietz in regards to possible medications. She was able to do a chart review and recommends BuSpar to help the patient with her anxiety. First dose will be given here. Awaiting further testing results, we will continue to monitor. 06/01/20 22:54 Still awaiting osmolality results. Will determine whether or not patient would be a good candidate for IV fluids based on that. Otherwise, it is likely she will need to continue increased fluid restrictions, increase salt intake at home. Will defer this to primary care provider for further outpatient management. Patient will require another recheck of her basic metabolic panel in 48 hours to evaluate her status. Otherwise, patient will be discharged with BuSpar and close follow-up. (GUSTAVO RODRIGUEZ) 06/02/20 00:42 Received patient in signout. Urine/serum osmolality studies have resulted. Serum osmolality is low, confirming hypotonicity/true hyponatremia. Urine osmolality is low, though greater than 100. Urine sodium is moderately decreased. Findings suggest that patient would benefit from intravenous fluids. 1 L normal saline ordered. 06/02/20 01:36 Patient's daughter has arrived at bedside. I rediscussed with her patient's work-up and current care plan set out by Dr. Rodriguez. Discussed again need to have labs rechecked in 48 hours. Advised daughter to please call PCP in the morning to see if an outpatient labs can be ordered here locally, PCP is located in [place]. Daughter verbalized understanding. Patient well-appearing, no current complaints. Plan to discharge once fluids have finished. (NOELLE ROSALES) - Vital Signs Vital signs: Temp Pulse Resp BP Pulse Ox 98.6 F 88 14 146/80 H 99 06/01/20 20:11 06/01/20 18:28 06/02/20 00:47 06/02/20 00:47 06/02/20 00:47 - Laboratory Laboratory results interpreted by me: 06/01/20 06/01/20 06/01/20 19:10 19:10 19:10 Hct Sodium Chloride Carbon Dioxide Glucose Serum Osmolality Calcium AST ALT Urine Ketones TRACE H Urine Osmolality 136 L Urine Sodium 26 L 06/01/20 06/01/20 06/01/20 20:55 20:55 20:55 Hct 35.8 L Sodium 122.3 L Chloride 83 L Carbon Dioxide 31 H Glucose 111 H Serum Osmolality 256 L Calcium 10.6 H AST 42 H ALT 40 H Urine Ketones Urine Osmolality Urine Sodium - Diagnostic Test Radiology results interpreted by me: 06/01/20 22:41 Chest X-Ray 06/01/20 19:01 IMPRESSION: COPD/emphysema. Mild cardiomegaly. No acute findings. Head CT 06/01/20 19:01 IMPRESSION: 1. Chronic periventricular white matter changes. 2. No acute findings. (GUSTAVO RODRIGUEZ) - EKG Interpretation by Me Additional EKG results interpreted by me: 06/01/20 22:41 Sinus mechanism with a rate of 62 bpm. Left axis deviation, likely LVH. Normal intervals. T wave inversions laterally, no change from prior in regards to these changes. Compared to prior study of April 24, 2020. (GUSTAVO RODRIGUEZ) Discharge <GUSTAVO RODRIGUEZ - Last Filed: 06/01/20 22:53> <NOELLE ROSALES - Last Filed: 06/02/20 01:52> - Discharge Clinical Impression: Hyponatremia, Anxiety and depression Condition: Stable Disposition: HOME, SELF-CARE Instructions: Anxiety ([facility]), Hyponatremia ([facility]) Additional Instructions: Please have labs checked in 48 hours. Call the primary care office and see if they can put an order for a local laboratory here. Continue increased salt in diet. A new prescription for BuSpar has been ordered. Return to the emergency department for any concerning worsening symptoms. Prescriptions: Buspirone HCl [Buspar 10 mg Tablet] 5 mg PO BID #30 tablet Referrals: HUGH CROCKER DO [Primary Care Provider] - Follow up as needed
[2020-06-01] MEDS ORDERED: BUSPIRONE HCL 10 MG TABLET PO ONE (22:30)
[2020-06-02] MEDS ORDERED: NORMAL SALINE 1000 ML 1,000 ML IV ONE (00:37)
[2020-06-02] MEDS ORDERED: ACETAMINOPHEN 325 MG TABLET PO ONE ×2 (00:45)
[2020-06-02 02:32] VITALS: BP 155/67
--- NOTE | 2020-06-02 07:24 | EKG REPORT ---
SEVERITY:- ABNORMAL ECG - SINUS RHYTHM PROBABLE LEFT ATRIAL ABNORMALITY PROBABLE LEFT VENTRICULAR HYPERTROPHY ABNORMAL T, CONSIDER ISCHEMIA, LATERAL LEADS : Confirmed by: Denton Maloney MD 02-Jun-2020 07:23:45
== END 2020-06-02 02:32 | disposition home or self-care (01) ==
LOC: ER 18:24
DX: F41.9 Anxiety disorder, unspecified (principal); F32.9 Major depressive disorder, single episode, unspecified; E87.1 Hypo-osmolality and hyponatremia; J43.9 Emphysema, unspecified; I11.9 Hypertensive heart disease without heart failure; R51 Headache; Z79.899 Other long term (current) drug therapy; Z93.3 Colostomy status; Z85.048 Personal history of other malignant neoplasm of rectum, rectosigmoid junction, and anus; Z88.0 Allergy status to penicillin
CPT/HCPCS: 93005; 99285; 96360; 36415; 83930; 83935; 84300; 85025; 80053; 81001; 84484; 71045; 70450; 93010; A9270 ×2; J7030